=== PATIENT | male | born 1950 | race Caucasian/White ===

== ENCOUNTER 2017-01-02 04:15 | Emergency (ER) | payer MEDICARE ==
[2017-01-02] MEDS ORDERED: IBUPROFEN 800 MG TAB PO STA (04:39)
[2017-01-02] MEDS ORDERED: ONDANSETRON ODT 4 MG TAB PO STA (04:39)
[2017-01-02] MEDS ORDERED: HYDROmorphone 2 MG/ML 1 ML SYRINGE IM STA (04:39)
[2017-01-02 05:06] LABS: Appearance,Urine Cloudy (Clear); Bilirubin,Urine Negative (Negative); Calcium Oxalate Crystals,Urine Few /hpf; Glucose,Urine (UA) Negative (Negative); Ketones,Urine Trace (Negative); Leukocyte Esterase,Urine Negative (Negative); Mucus,Urine Many /hpf; Nitrite,Urine Negative (Negative); PH, Urine 5.5 (5.0-8.0); Particle Count 12052; Protein,Urine 1+ (Negative); RBC,Urine >182 /hpf (0-5); Specific Gravity,Urine 1.019 (1.001-1.035); UA Billing (MACRO vs. MICRO) MICRO; Urobilinogen,Urine <2.0 mg/dL (<2.0); WBC,Urine 2 /hpf (0-5)
[2017-01-02] MEDS ORDERED: KETOROLAC 60 MG/2 ML VIAL IM STA (05:18)
--- NOTE | 2017-01-02 05:28 | ED ---
General Adult HPI - General Chief complaint: Abdominal Pain Stated complaint: Flank Pain/Back Pain Time Seen by Provider: 01/02/17 04:30 Source: patient, RN notes reviewed, old records reviewed Mode of arrival: ambulatory Limitations: no limitations - History of Present Illness Initial comments: This is a 66-year-old male here for evaluation of right flank pain, severe right -sided flank pain is been going on for a few days. Patient states he has history of kidney stones and was seen at [facility] 2 days ago for evaluation of same thing, pain is worsening, patient did and is taking pain medication at home but it made him sick and nauseous and was able to keep it down. Patient denies any fevers, is is drinking water and is having urinary output. - Related Data Home Medications Medication Instructions Recorded Confirmed No Known Home Medications [No 01/02/17 01/02/17 Known Home Medications] Allergies Allergy/AdvReac Type Severity Reaction Status Date / Time No Known Allergies Allergy Verified 01/02/17 04:24 Review of Systems ROS Statement: Those systems with pertinent positive or pertinent negative responses have been documented in the HPI. ROS Other: All systems not noted in ROS Statement are negative. Past Medical History Past Medical History: No Reported History History of Any Multi-Drug Resistant Organisms: None Reported Additional Past Surgical History / Comment(s): jaw cyst removal Past Psychological History: No Psychological Hx Reported Smoking Status: Light tobacco smoker Past Alcohol Use History: None Reported Past Drug Use History: None Reported General Exam Limitations: no limitations General appearance: alert, in no apparent distress, anxious Head exam: Present: atraumatic, normocephalic, normal inspection Eye exam: Present: normal appearance, PERRL, EOMI. Absent: scleral icterus, conjunctival injection, periorbital swelling ENT exam: Present: normal exam, mucous membranes moist Neck exam: Present: normal inspection. Absent: tenderness, meningismus, lymphadenopathy Respiratory exam: Present: normal lung sounds bilaterally. Absent: respiratory distress, wheezes, rales, rhonchi, stridor Cardiovascular Exam: Present: regular rate, normal rhythm, normal heart sounds. Absent: systolic murmur, diastolic murmur, rubs, gallop, clicks GI/Abdominal exam: Present: soft, normal bowel sounds. Absent: distended, tenderness, guarding, rebound, rigid Extremities exam: Present: normal inspection, full ROM, normal capillary refill. Absent: tenderness, pedal edema, joint swelling, calf tenderness Back exam: Present: normal inspection Neurological exam: Present: alert, oriented X3, CN II-XII intact Psychiatric exam: Present: normal affect, normal mood Skin exam: Present: warm, dry, intact, normal color. Absent: rash Course Vital Signs 01/02/17 04:21 Temperature 97.1 F L Pulse Rate 77 Respiratory 18 Rate Blood Pressure 132/75 O2 Sat by Pulse 100 Oximetry - Reevaluation(s) Reevaluation #1: 01/02/17 05:26 Records obtained, computed tomography scan did show right-sided ureterolithiasis 2 mm Reevaluation #2: 01/02/17 05:26 Patient's pain at this time is difficult to control Reevaluation #3: 01/02/17 05:26 Patient's pain at this time is improved Medical Decision Making - Medical Decision Making 66 year with right flank pain secondary to kidney stone, ureteral colic, patient will be given increased pain control, antinausea medication and is okay for discharge home to increase fluid intake - Lab Data Lab Results 01/02/17 Range/Units 04:50 Urine Color Yellow Urine Appearance Cloudy (Clear) Urine pH 5.5 (5.0-8.0) Ur Specific [place] 1.019 (1.001-1.035) Urine Protein 1+ H (Negative) Urine Glucose (UA) Negative (Negative) Urine Ketones Trace H (Negative) Urine Blood Large H (Negative) Urine Nitrate Negative (Negative) Urine Bilirubin Negative (Negative) Urine Urobilinogen <2.0 (<2.0) mg/dL Ur Leukocyte Esterase Negative (Negative) Urine RBC >182 H (0-5) /hpf Urine WBC 2 (0-5) /hpf Calcium Oxalate Crystal Few H (None) /hpf Urine Mucus Many H (None) /hpf - Radiology Data Radiology results: report reviewed, image reviewed Disposition Clinical Impression: Calculus of right kidney Disposition: HOME SELF-CARE Condition: Good Instructions: Kidney Stones (ED), Renal Colic (ED) Referrals: James Carlton MD [STAFF PHYSICIAN] - 1-2 days
--- NOTE | 2017-01-02 05:37 | XR ---
EXAMINATION TYPE: XR KUB DATE OF EXAM: 01/02/2017 4:54 AM COMPARISON: NONE HISTORY: Right-sided abdominal pain TECHNIQUE: 2 views FINDINGS: Bowel gas pattern is normal. There is no sign of intestinal obstruction or pneumoperitoneum . Fecal pattern is normal. There is no sign of a mass. IMPRESSION: Nonacute abdomen.
[2017-01-02 06:28] VITALS: BP 133/82; PULSE 70; RESP 16; TEMP 97.2
== END 2017-01-02 06:20 | disposition home or self-care (01) ==
LOC: EC 04:15
DX: N20.1 Calculus of ureter (principal); F17.200 Nicotine dependence, unspecified, uncomplicated; Z87.442 Personal history of urinary calculi
CPT/HCPCS: 99284; 96372 ×2; 81001; 87086; 74000; J1170; J1885